=== PATIENT | male | born 1985 | race African-American/Black ===

== ENCOUNTER 2022-04-11 08:44 | Emergency (ER) | payer SELFPAY ==
[~2022-04-11] VITALS: Ht 182.9 cm; Wt 100.0 kg
[2022-04-11 08:47] VITALS: BP 150/90
[2022-04-11] MEDS ORDERED: SODIUM CHLORIDE 0.9% 1,000 ML IV ONE (10:45)
[2022-04-11 11:19] LABS: EOSINOPHILS % 0.8 % (0.0-5.0); HEMATOCRIT. 45.6 % (42.0-52.0); HEMOGLOBIN. 14.8 g/dL (14.0-18.0); LYMPHOCYTES % 18.4 % (20.0-50.0); MEAN CORPUSCULAR HEMOGLOBIN 28.4 pg (28.0-32.0); MEAN CORPUSCULAR VOLUME 87.4 fL (80.0-94.0); MEAN PLATELET VOLUME 7.6 fl (7.4-10.4); MONOCYTES % 8.8 % (2.0-8.0); PLATELET 413 x1000/uL (130-400); RED BLOOD CELL COUNT 5.22 mill/uL (4.7-6.1); RED CELL DISTRIBUTION WIDTH 16.5 % (11.6-14.6)
[2022-04-11] MEDS ORDERED: ACETAMINOPHEN 325MG TABLET PO ONE (13:15)
[2022-04-11] MEDS ORDERED: IBUPROFEN 400MG TABLET PO ONE (13:15)
[2022-04-11 13:34] LABS: CHLORIDE 101 mEq/L (98-107)
== END 2022-04-11 16:25 | disposition home or self-care (01) ==
LOC: ER 08:54
DX: J06.9 Acute upper respiratory infection, unspecified (principal); I10 Essential (primary) hypertension
CPT/HCPCS: 36415; 80053; 83690; 85025; 85610; 96360; 99283; C1893; J7030; Z7610